=== PATIENT | male | born 1995 | race Two or more races ===

== ENCOUNTER 2020-02-18 18:00 | Emergency (ER) | payer MEDICAID, OTHER ==
[~2020-02-18] VITALS: Ht 180.3 cm; Wt 86.2 kg
[~2020-02-18 18:00] MED LIST: IBUPROFEN600 MG ORAL; MICONAZOLE NITR30 GM TOPIC; MOTRIN600 MG PO; NKM
[2020-02-18 18:12] VITALS: BP 141/80
--- NOTE | 2020-02-18 18:21 | NUR ---
ED Nurse Note: Patient walked into ER due to burning pain on the roof of his mouth since last Sunday. Reports no injury. Reports no cough, fever or chills. No redness or swelling on the affected area noted. Reports no problem with swallowing. Patient sitting in chair without facial grimacing or guarding. Reports no drug or alcohol use. Patient awake, alert, oriented x 4. Regular, unlabored breathing noted. Patient has mask on.
--- NOTE | 2020-02-18 18:33 | Emergency Room Report ---
History of Present Illness General Chief Complaint: Pain Source: Patient Present Illness HPI 24-year-old male presents to the emergency department complaining of 9 out of 10 severity burning oral sores on the roof of his mouth x4 days. Patient reports he also has palpable lymph nodes that are sore. Patient denies fevers or chills. He denies cough, runny nose or nasal congestion. Patient reports he was around 1 of his friends who was sick a few days ago. Patient states that he was with his friend drinking and chain cups prior to onset of his symptoms. He denies recent travel. Denies recent travel. Denies contact with persons who have tested positive for or are under investigation/quarantine or receiving treatment for COVID-19. He reports pain with attempts to eat or drink anything. He reports he took some Motrin several times with very minimal relief of his symptoms. Allergies: Uncoded Allergies: KEFLEX (Allergy, 11/08/12) COVID-19 Screening Contact w/high risk pt: No Recent Travel to affected area: No Experienced COVID-19 symptoms?: No Patient History Past Medical History: see triage record Past Surgical History: none Pertinent Family History: none Reviewed Nursing Documentation: PMH: Agreed; PSxH: Agreed Nursing Documentation-PMH Past Medical History: No Stated History Review of Systems All Other Systems: negative except mentioned in HPI Physical Exam Vital Signs Date Time Temp Pulse Resp B/P (MAP) Pulse Ox O2 Delivery O2 Flow Rate FiO2 02/18/20 18:12 98.6 66 14 141/80 (100) 97 Room Air Sp02 EP Interpretation: reviewed, normal General Appearance: no apparent distress, alert, GCS 15, non-toxic Head: normocephalic, atraumatic Eyes: bilateral eye normal inspection, bilateral eye PERRL ENT: hearing grossly normal, normal voice, other - multiple discrete oral ulcers on the hard palate of the mouth. Lala floors. No white membrane. No exudates. Mild tonsillar swelling bilaterally. Uvula is midline. Palpable anterior cervical lymph nodes and sub-parotid lymph nodes. Neck: full range of motion, no meningismus Respiratory: chest non-tender, lungs clear, normal breath sounds, no wheezing, speaking full sentences Cardiovascular #1: regular rate, rhythm Musculoskeletal: normal range of motion, gait/station normal, non-tender Neurologic: alert, motor strength/tone normal, oriented x3, sensory intact, responsive, speech normal Psychiatric: judgement/insight normal Skin: no rash, normal color Medical Decision Making PA Attestation Dr. Cid Is my supervising Physician whom patient management has been discussed with. Diagnostic Impression: Primary Impression: Acute viral syndrome Additional Impression: Viral enanthem of mouth ER Course 24-year-old male presents to the emergency department complaining of 9 out of 10 severity burning oral sores on the roof of his mouth x4 days. Patient reports he also has palpable lymph nodes that are sore. Patient denies fevers or chills. He denies cough, runny nose or nasal congestion. Patient reports he was around 1 of his friends who was sick a few days ago. Patient states that he was with his friend drinking and chain cups prior to onset of his symptoms. He denies recent travel. Denies recent travel. Denies contact with persons who have tested positive for or are under investigation/quarantine or receiving treatment for COVID-19. He reports pain with attempts to eat or drink anything. He reports he took some Motrin several times with very minimal relief of his symptoms. Ddx considered but are not limited to: stomatitis, up from his ulcers, oral thrush, HFM, koplik spots, HSV, dental abscess, [employer], EBV, tonsiliths. Vital signs: are WNL, pt. is afebrile H&PE are most consistent with Viral stomatitis of the oral mucosa. No exudates and pt. does not meet centor criteria. ORDERS: none required at this time, the diagnosis is clinical ED INTERVENTIONS: None required at this time. -I do not identify an emergent condition at this time. With current presentation , pt. is stable for close outpatient follow up and conservative treatment. D/ w pt. to return promptly to ED with worsening or new symptoms.- Pt. verbalizes' understanding and agreement with proposed treatment plan. This patient was evaluated in the context of the global COVID-19 pandemic, which necessitated consideration that the patient might be at risk for infection with the SARS-COV-2 virus that causes COVID-19. Institutional protocols and algorithms that pertaining to the evaluation of patients at risk for COVID-19 are in a state of rapid change based on information released by multiple regulatory bodies including the CDC and federal and state organizations. These policies and algorithms were followed during the patient' s care in the emergency department DISCHARGE: At this time pt. is stable for d/c to home. Will provide printed patient care instructions, and any necessary prescriptions. Care plan and follow up instructions have been discussed with the patient prior to discharge. Last Vital Signs Date Time Temp Pulse Resp B/P (MAP) Pulse Ox O2 Delivery O2 Flow Rate FiO2 02/18/20 18:12 98.6 14 141/80 97 Room Air 02/18/20 18:12 66 Disposition: HOME, SELF-CARE Condition: Stable Scripts Benzocaine (ANBESOL) 9 Gm Gel..gram. 1 APPLIC MM Q6HR, #9 GM Prov: Koki Chavarria 02/18/20 Acyclovir* (ACYCLOVIR*) 400 Mg Tablet 400 MG ORAL FIVE TIMES A DAY for 7 Days, #35 TAB Prov: Koki Chavarria 02/18/20 Patient Instructions: Sore Throat, [id number] Additional Instructions: Take medications as directed. Follow up with a Primary Care Provider in 3-5 days, even if your symptoms have resolved. --Please review list of primary care clinics, if you do not already have a primary care provider Return sooner to ED if new symptoms occur, or current symptoms become worse. - Please note that this Emergency Department Report was dictated using [employer] processor technology software, occasionally this can lead to erroneous entry secondary to interpretation by the dictation equipment. Koki Chavarria Feb 18, 2020 18:33
[2020-02-18] MEDS ORDERED: ACYCLOVIR400 MG ORAL (18:35)
[2020-02-18] MEDS ORDERED: ANBESOL9 GM MM (18:35)
--- NOTE | 2020-02-18 18:45 | NUR ---
ER DISCHARGE NOTE: Patient is cleared to be discharged per ERMD. D/C instructions and prescriptions given to patient. Patient verbalized understanding of it. All questions were answered. Patient ambulated out with steady gait with all his belongings.
== END 2020-02-18 18:45 | disposition home or self-care (01) ==
LOC: EMR 18:30
DX: B09 Unspecified viral infection characterized by skin and mucous membrane lesions (principal); Z88.8 Allergy status to other drugs, medicaments and biological substances
CPT/HCPCS: 99282